=== PATIENT | male | born 1980 | race Two or more races ===

== ENCOUNTER 2017-03-16 15:08 | Emergency (ER) | payer SELFPAY ==
[~2017-03-16] VITALS: Ht 177.8 cm; Wt 81.6 kg
[2017-03-16 15:20] VITALS: BP 121/80
[2017-03-16] MEDS ORDERED: KETOROLAC TROMETH 60MG/2ML VIAL IM ONE (15:45)
== END 2017-03-16 17:40 | disposition home or self-care (01) ==
LOC: ER 15:15
DX: S52.502A Unspecified fracture of the lower end of left radius, initial encounter for closed fracture (principal); V89.2XXA Person injured in unspecified motor-vehicle accident, traffic, initial encounter; Y93.89 Activity, other specified; Y99.8 Other external cause status; Y92.488 Other paved roadways as the place of occurrence of the external cause
CPT/HCPCS: 29125; 73090; 73100; 73110; 73130; 96372; 99284; J1885

== ENCOUNTER → 2019-11-26 | Emergency (ER) | payer MEDICAID | END | disposition left against medical advice (07) | LOC: ER 18:27 | DX: H57.13 Ocular pain, bilateral (principal); Z53.21 Procedure and treatment not carried out due to patient leaving prior to being seen by health care provider ==